=== PATIENT | male | born 1945 | race American Indian/Alaskan Native ===

== ENCOUNTER 2016-09-18 11:29 | Inpatient (IN) | payer MEDICARE ==
[2016-09-18] MEDS ORDERED: KEPPRA 1,000 MG/NS 0.75% 100ML 1,000 MG/100 ML BAG IV ONE ×2 (11:34→12:30)
[2016-09-18] MEDS ORDERED: ATIVAN ONE (11:34)
[2016-09-18] MEDS ORDERED: KEPPRA 1,000 MG in D5W 100 ML IV ONE (11:48)
[2016-09-18] MEDS ORDERED: ATIVAN IV ONE (11:48)
--- NOTE | 2016-09-18 12:03 | Emergency Department Report ---
ED General Adult HPI - General Chief complaint: Seizure Stated complaint: SEIZURE Time Seen by Provider: 09/18/16 11:47 Source: family, EMS, RN notes reviewed, old records reviewed Mode of arrival: Stretcher Limitations: Altered Mental Status - History of Present Illness Initial comments: This is a 71-year-old male. I have evaluated him in the past. Has a past medical history of multiple strokes, left hemianopia defect, mild left hemiparesis. Also has a history of seizure disorder, is supposed to be taking Keppra, 750 twice daily. Also has a history of renal insufficiency, not currently on dialysis therapy. Patient is brought to the hospital by EMS. Patient has been having seizures. There is no trauma. Seizure started today. They're constant. EMS reported that seizures were generalized tonic-clonic, and improved with 2 mg of Ativan. Upon arrival to the ER, patient was actively seizing. He was given 2 mg of Ativan, and 1 g of Keppra, which terminated his seizure. Patient is on home hospice, he is a DO NOT RESUSCITATE, but his daughter, Mrs. Joi Plascencia, , gives permission for intubation if necessary. Currently, the patient is postictal, breathing spontaneously, unable to offer additional history. The patient's daughter reports the patient is typically alert and oriented and conversant, and was normal yesterday, and this morning prior to the episode of seizure. -: Sudden Improves with: medication Worsens with: none Associated Symptoms: confusion - Related Data Home Medications Medication Instructions Recorded Confirmed Last Taken Clopidogrel 75 mg PO DAILY 04/30/16 08/22/16 06/15/16 Latanoprost 0.005% 1 drop OS DAILY 04/30/16 08/22/16 06/15/16 Metoprolol Tartrate 25 mg PO BID 04/30/16 08/22/16 06/15/16 hydrALAZINE 25 mg PO TID 04/30/16 08/22/16 06/15/16 Sodium Bicarbonate 650 mg PO DAILY 05/27/16 08/22/16 06/15/16 Aspirin EC [Aspirin Enteric Coated 81 mg PO QDAY 06/16/16 08/22/16 06/15/16 TAB] levETIRAcetam [Keppra TAB] 750 mg PO BID 06/16/16 08/22/1616 AtorvaSTATin [Lipitor] 40 mg PO QHS 08/22/16 08/22/16 Unknown Suplena 480 ml FEEDTUBE TID 08/22/16 08/22/16 Unknown Previous Rx's Medication Instructions Recorded Last Taken Type Famotidine [Pepcid] 20 mg PO BID #60 tablet 05/28/16 06/15/16 Rx Levofloxacin [Levaquin] 250 mg PO QDAY #5 tablet 08/26/16 Unknown Rx Allergies Allergy/AdvReac Type Severity Reaction Status Date / Time No Known Allergies Allergy Unverified 04/30/16 21:38 ED Review of Systems ROS: Stated complaint: SEIZURE Other details as noted in HPI Comment: Unobtainable due to pts medical conditions ED Past Medical Hx - Past Medical History Previous Medical History?: Yes Hx Hypertension: Yes Hx CVA: Yes (x2, TIA) Hx Heart Attack/AMI: Yes (CAD) Hx Diabetes: Yes Hx Renal Disease: Yes (Renal Failure (Not on dialysis yet)) Hx of Cancer: Yes (Stage 4 prostate) Hx Seizures: Yes Hx Dementia: Yes Hx HIV: No Additional medical history: Glaucoma, - Surgical History Past Surgical History?: Yes Additional Surgical History: Right knee, AV Fistila Right arm. - Social History Smoking Status: Never Smoker Substance Use Type: None - Medications Home Medications: Home Medications Medication Instructions Recorded Confirmed Last Taken Type Clopidogrel 75 mg PO DAILY 04/30/16 08/22/16 06/15/16 History Latanoprost 0.005% 1 drop OS DAILY 04/30/16 08/22/16 06/15/16 History Metoprolol Tartrate 25 mg PO BID 04/30/16 08/22/16 06/15/16 History hydrALAZINE 25 mg PO TID 04/30/16 08/22/16 06/15/16 History Sodium Bicarbonate 650 mg PO DAILY 05/27/16 08/22/16 06/15/16 History Famotidine [Pepcid] 20 mg PO BID #60 tablet 05/28/16 08/22/16 06/15/16 Rx Aspirin EC [Aspirin Enteric Coated 81 mg PO QDAY 06/16/16 08/22/16 06/15/16 History TAB] levETIRAcetam [Keppra TAB] 750 mg PO BID 06/16/16 08/22/1606/15/16 History AtorvaSTATin [Lipitor] 40 mg PO QHS 08/22/16 08/22/16 Unknown History Suplena 480 ml FEEDTUBE TID 08/22/16 08/22/16 Unknown History Levofloxacin [Levaquin] 250 mg PO QDAY #5 tablet 08/26/16 Unknown Rx ED Physical Exam - General Limitations: Altered Mental Status General appearance: lethargic - Head Head exam: Present: atraumatic, normocephalic - Eye Eye exam: Present: normal appearance. Absent: nystagmus - ENT ENT exam: Present: mucous membranes dry - Neck Neck exam: Present: normal inspection, full ROM. Absent: tenderness, meningismus - Respiratory Respiratory exam: Present: rhonchi. Absent: respiratory distress - Cardiovascular Cardiovascular Exam: Present: normal rhythm, tachycardia, normal heart sounds. Absent: systolic murmur, diastolic murmur, rubs, gallop - GI/Abdominal GI/Abdominal exam: Present: soft, normal bowel sounds, other (feeding tube is noted in the left mid flank. No redness, pus or streaking). Absent: distended , tenderness, guarding, rebound, rigid, pulsatile mass - Rectal Rectal exam: Present: normal inspection - Extremities Exam Extremities exam: Present: normal inspection, normal capillary refill. Absent: calf tenderness - Back Exam Back exam: Present: normal inspection. Absent: tenderness, CVA tenderness (R), CVA tenderness (L), muscle spasm, paraspinal tenderness - Neurological Exam Neurological exam: Present: altered - Psychiatric Psychiatric exam: Present: other (patient altered, currently postictal) - Skin Skin exam: Present: warm, dry, intact, normal color. Absent: rash ED Course Vital Signs 09/18/16 09/18/16 09/18/16 11:36 11:40 11:45 Temperature 99.9 F H Pulse Rate 127 H 113 H Respiratory 15 24 Rate Blood Pressure O2 Sat by Pulse 96 99 100 Oximetry 09/18/16 09/18/16 09/18/16 11:50 12:44 12:50 Temperature Pulse Rate 103 H Respiratory 31 H Rate Blood Pressure 133/70 133/70 133/70 O2 Sat by Pulse 100 100 100 Oximetry 09/18/16 09/18/16 09/18/16 13:00 13:10 13:20 Temperature Pulse Rate Respiratory Rate Blood Pressure 133/70 133/70 133/70 O2 Sat by Pulse 100 100 100 Oximetry 09/18/16 09/18/16 09/18/16 13:30 13:40 13:50 Temperature Pulse Rate Respiratory Rate Blood Pressure 133/70 133/70 133/70 O2 Sat by Pulse 100 100 100 Oximetry 09/18/16 09/18/16 14:00 14:10 Temperature Pulse Rate Respiratory Rate Blood Pressure 133/70 133/70 O2 Sat by Pulse 100 100 Oximetry - Reevaluation(s) Reevaluation #1: 09/18/16 12:01 Differential diagnosis: Breakthrough seizure, pneumonia, medication noncompliance, electrolyte derangement, myositis, urinary tract infection Assessment and plan: 71-year-old male with known history of breakthrough seizures. He is currently postictal. Review of old charts demonstrates the patient was recently admitted for seizures, possible urinary tract infection, and discharged on Levaquin. Levaquin and of itself may decrease the seizure threshold. We will check basic laboratory studies, x-ray, CAT scan of the head , and continue to monitor. The patient regained his normal mental status, it may be reasonable to discharge. However, if he remains postictal for a prolonged period of time, he may require admission. Patient is currently following with [facility]; [place]; [phone] Reevaluation #2: 09/18/16 14:25 patient has had a prolonged postictal state, without christianity of normal mental status. Most likely combination of postictal state with IV sedating medications. Urinalysis suggests urinary tract infection. Given the prolonged altered mental status, patient to be admitted. Is not requiring intubation at this time. Dr. Escoto accepts the patient to his service. ED Medical Decision Making - Lab Data Result diagrams: 09/18/16 12:05 09/18/16 12:05 Vital Signs 09/18/16 11:45 Temperature 99.9 F H Pulse Rate 113 H Respiratory 24 Rate O2 Sat by Pulse 100 Oximetry - Radiology Data Radiology results: report reviewed, image reviewed CT scan of the brain negative for acute disease, chronic findings noted. X-ray the chest negative for acute disease. Critical Care Time: Yes Critical care time in (mins) excluding proc time.: 35 Critical care attestation.: If time is entered above; I have spent that time in minutes in the direct care of this critically ill patient, excluding procedure time. Critical Care Time: Critical care time includes multiple bedside evaluations, interpretation of laboratory studies, radiology studies, time spent managing a patient with active seizures, requiring IV benzodiazepines, and close airway management. This does not include procedure time. ED Disposition Clinical Impression: Altered mental status Qualifiers: Altered mental status type: unspecified Qualified Code(s): R41.82 - Altered mental status, unspecified Urinary tract infection Qualifiers: Urinary tract infection type: acute cystitis Hematuria presence: without hematuria Qualified Code(s): N30.00 - Acute cystitis without hematuria Chronic kidney disease Qualifiers: Chronic kidney disease stage: unspecified stage Qualified Code(s): N18.9 - Chronic kidney disease, unspecified Disposition: OP ADMITTED IP TO THIS HOSP Is pt being admited?: Yes Does the pt Need Aspirin: No Condition: Fair
[2016-09-18 12:14] LABS: Bilirubin,Urine NEG (Negative); Blood,Urine NEG (Negative); Ketones,Urine NEG (Negative); Leukocyte Esterase,Urine LG (Negative); Mucus,Urine FEW /HPF; Nitrite,Urine NEG (Negative); Urobilinogen,Urine < 2.0 mg/dL (<2.0)
[2016-09-18 12:15] LABS: Protein,Urine >500 mg/dL (Negative)
--- NOTE | 2016-09-18 12:21 | XRay Report ---
AP CHEST: HISTORY: Shortness of breath, pneumonia AP view of the chest demonstrates a normal mediastinal and cardiac contour with clear lungs and normal bony and soft tissue structures. The aorta is tach which is unchanged. IMPRESSION: Unremarkable AP chest. No significant change since 06/16/16.
--- NOTE | 2016-09-18 12:32 | Cat Scan Report ---
CT HEAD WITHOUT CONTRAST: HISTORY: Seizures. Volume loss and chronic white matter changes are noted. Chronic focal infarcts in the right basal ganglia, medial left thalamus, left karel and left cerebellar hemisphere are again noted. Large chronic infarct in the right CIRCULAR CLERK distribution is again noted. There is no evidence for hemorrhage, mass or extra-axial fluid collection. Ventricular size is stable and within normal limits. The mastoid air cells and visualized portions of the sinuses are normal. IMPRESSION: Chronic findings as outlined above which are unchanged since 06/16/16.
[2016-09-18 12:38] LABS: BUN/Creatinine Ratio 13.33; Calcium 8.6 mg/dL (8.4-10.2); Chloride 103.7 mmol/L (98-107); Magnesium 2.2 mg/dL (1.7-2.3); Potassium 4.3 mmol/L (3.6-5.0)
[2016-09-18] MEDS ORDERED: ROCEPHIN/NS 1 GM/50 ML 1 GM/50 ML BAG IV ONE (12:45)
[2016-09-18 12:53] LABS: Hematocrit 35.9 % (35.5-45.6); Hemoglobin 11.4 gm/dl (11.8-15.2); Mean Corpuscular HGB Conc 32 % (32-34); Mean Corpuscular Hemoglobin 29 pg (28-32); Mean Corpuscular Volume 92 fl (84-94); Platelet Count 206 K/mm3 (140-440); Red Blood Count 3.91 M/mm3 (3.65-5.03); Red Cell Distribution Width 15.3 % (13.2-15.2); White Blood Count 7.2 K/mm3 (4.5-11.0)
--- NOTE | 2016-09-18 14:14 | History and Physical Report ---
History of Present Illness Chief complaint: seizure History of present illness: 71 YO Male with Prostate Cancer Stage 4(On hospice care but patient family revoked in ED), CVA with LHP, Seizure Disorder, CAD, HTN, Dementia, Debility, DM , ESRD not on Dialysis presents to ED for evaluation. Pt transported to ED as per EMS and had generalized tonic clonic seizures in transit. Pt treated with ativan with resolution of seizure activity. Patient is on home hospice, he is a DO NOT RESUSCITATE, but his daughter, Mrs. Joi Plascencia, , revoked previous DNR and wants pt to be a full code. Pt seen and evaluated in ED, Pt is able to protect his airway, and has positive gag reflex. Pt is stuporous on exam and in unable to provide history, but history is taken from chart, and ED staff. Past History Past Medical History: CAD, cancer, diabetes, ESRD, hypertension, seizures, stroke Past Surgical History: total knee replacement, Other (RUE AVF) Social history: . denies: smoking, alcohol abuse, prescription drug abuse Family history: diabetes, hypertension Medications and Allergies Allergies Allergy/AdvReac Type Severity Reaction Status Date / Time No Known Allergies Allergy Unverified 04/30/16 21:38 Home Medications Medication Instructions Recorded Confirmed Last Taken Type Clopidogrel 75 mg PO DAILY 04/30/16 08/22/16 06/15/16 History Latanoprost 0.005% 1 drop OS DAILY 04/30/16 08/22/16 06/15/16 History Metoprolol Tartrate 25 mg PO BID 04/30/16 08/22/16 06/15/16 History hydrALAZINE 25 mg PO TID 04/30/16 08/22/16 06/15/16 History Sodium Bicarbonate 650 mg PO DAILY 05/27/16 08/22/16 06/15/16 History Famotidine [Pepcid] 20 mg PO BID #60 tablet 05/28/16 08/22/16 06/15/16 Rx Aspirin EC [Aspirin Enteric Coated 81 mg PO QDAY 06/16/16 08/22/16 06/15/16 History TAB] levETIRAcetam [Keppra TAB] 750 mg PO BID 06/16/16 08/22/16 06/15/16 History AtorvaSTATin [Lipitor] 40 mg PO QHS 08/22/16 08/22/16 Unknown History Suplena 480 ml FEEDTUBE TID 08/22/16 08/22/16 Unknown History Levofloxacin [Levaquin] 250 mg PO QDAY #5 tablet 08/26/16 Unknown Rx Review of Systems ROS unobtainable: due to mental status Exam - Constitutional Vitals: Temp Pulse Resp BP Pulse Ox 99.9 F H 113 H 24 100 09/18/16 11:45 09/18/16 11:45 09/18/16 11:45 09/18/16 11:45 General appearance: Present: mild distress - EENT Eyes: Present: PERRL - Neck Neck: Present: supple - Respiratory Respiratory: bilateral: diminished - Cardiovascular Rhythm: regular Heart Sounds: Present: S1 & S2 - Extremities Extremities: no ischemia Extremity abnormal: edema Peripheral Pulses: within normal limits - Abdominal General gastrointestinal: Present: soft, non-tender, non-distended. Absent: hepatomegaly, splenomegaly Male genitourinary: Present: normal - Integumentary Integumentary: Present: clear, dry, decreased turgor - Musculoskeletal Musculoskeletal: left sided weakness - Psychiatric Psychiatric: no intact judgment & insight, no memory intact - Neurologic Neurologic: no CNII-XII intact, focal deficits, no moves all extremities, no gait normal Results - Labs CBC & Chem 7: 09/18/16 12:05 09/18/16 12:05 Labs: Abnormal lab results 09/18/16 09/18/16 09/18/16 Range/Units 11:54 12:05 12:05 Hgb 11.4 L (11.8-15.2) gm/dl RDW 15.3 H (13.2-15.2) % Carbon Dioxide 16 L (22-30) mmol/L BUN 40 H (9-20) mg/dL Creatinine 3.0 H (0.8-1.5) mg/dL Glucose 165 H (75-100) mg/dL Urine WBC (Auto) 149.0 H (0.0-6.0) /HPF Assessment and Plan - Patient Problems (1) Metastatic malignant neoplasm to prostate Current Visit: Yes Status: Acute Plan to address problem: Pain control, supportive care. Pt not a candidate for chemotherapy at this time. Pt family revoked hospice care. Poor prognosis. (2) Encephalopathy Current Visit: Yes Status: Acute Plan to address problem: supportive care, bed alarm, fall precautions, treat UTI (3) Seizure disorder Current Visit: Yes Status: Acute Plan to address problem: Keppra level, resume keppra therapy, ativan prn (4) UTI (urinary tract infection) Current Visit: Yes Status: Acute Qualifiers: Urinary tract infection type: U Hematuria presence: H Indwelling urinary catheter type: I Encounter type: E Plan to address problem: IV abx, ivf, supportive care, monitor uop q shift (5) ARF (acute renal failure) Current Visit: Yes Status: Acute Qualifiers: Acute renal failure type: A Plan to address problem: ESRD not on hemodialysis. Treat with supportive care, (6) Metabolic acidosis Current Visit: Yes Status: Acute Plan to address problem: IVF, treat uti, supportive care, (7) DVT prophylaxis Current Visit: Yes Status: Acute
--- NOTE | 2016-09-18 14:47 | Admit Criteria Form ---
Admission Criteria Documentation: MENTAL STATUS CHANGE Clinical Indications for Inpatient Care (Place 'X' for any and all applicable criteria): Ongoing inpatient care may be needed for ANY ONE of the following(1)(2)(3)(5)(6) : [X ]I. Suspected serious etiology (eg, medical disorder, ORACLE FUSION DEVELOPER event) of mental status change [ ]II. Danger to self or others not manageable at lower level of care [ ]III. Grave disability (eg, inability to perform self care necessary at lower level of care) [ ]IV. Agitation or inappropriate behavior interfering with care for primary condition (eg, attempting to discontinue lines or drains prematurely, unable to cooperate with respiratory care) [ ]V. Delirium [A] [D][E] as described by ANY ONE of the following(26): [ ]a) Delirium due to alcohol or sedative [F] withdrawal [ ]b) Delirium of uncertain etiology that has not responded to appropriate empiric treatment [ ]c) Delirium that prevents performance of a life-sustaining function (eg, feeding or hydrating oneself) [X ]. General contraindications and/or Inappropriate clinical situations for Observational Care in patients with Mental Status Change, when ANY ONE of the following is required: [X ]a) Prediction of prolongation of LOS based on ANY ONE of the following may be considered as a contraindication for observational care 2, 3, 4, 5, 6, 7, 8, 9, 10, 11 [X ]i) Age > 65 yrs. [ ]ii) Patient arriving by ambulance [ ]iii) Patient with high acuity [ ]iv) Patient requiring vital sign monitoring [ ]v) Patient on IV medication [ ]b) Systolic blood pressures 180mmHg 3,12 [ ]c) Patient with altered mental status including delirium and other alteration of consciousness, (3) [ ]d) Patient whose discharge disposition will be to a longterm home or rehabilitation home should not be managed in Emergency Department Observation Unit. CMS rule requires 3 days hospital stay before such placement.3,13 [ ]e) Patient with failure to thrive due to broad array of etiologies 3,16,17 [ ]f) Inability to ambulate 3,14 Extended stay beyond goal length of stay for the primary condition may be needed until ALL of the following are present(3)(5): [ ]a) Underlying medical etiology of mental status change is absent, or has been established and adequately treated [ ]b) Danger to self or others is absent or manageable at lower level of care. [ ]c) Behavior crisis management, including physical or chemical restraints, is not required or available at lower level of car [ ]d) Substance or alcohol withdrawal is absent or manageable at lower level of care. [ ]e) Behavioral symptoms (eg, agitation, somnolence, inappropriate behavior) are absent, or are manageable at lower level of care. The original [facility] [employer] content created by [facility] has been revised. The portions of the content which have been revised are identified through the use of italic text or in bold, and [facility] has neither reviewed nor approved the modified material. All other unmodified content is copyright [facility]. Please see references footnoted in the original [facility] edition 2016 Admission Criteria Met: Yes
[2016-09-18] MEDS ORDERED: TYLENOL PO PRN (16:46)
[2016-09-18] MEDS ORDERED: NACL 0.45% 1000 ML 1,000 ML IV SCH (18:00)
[2016-09-18] MEDS ORDERED: NON-FORMULARY (Hydralazine 25 MG) PO SCH (20:00)
[2016-09-18] MEDS ORDERED: [UNRECOGNIZED DRUG - OTHER] FEEDTUBE SCH (20:00)
[2016-09-18] MEDS ORDERED: NON-FORMULARY (Metoprolol Tartrate 25 MG) PO SCH (22:00)
[2016-09-18] MEDS ORDERED: PEPCID PO SCH (22:00)
[2016-09-18] MEDS: PEPCID PO SCH (23:19)
[2016-09-18] MEDS: KEPPRA PO SCH (23:19)
[2016-09-18] MEDS: APRESOLINE PO SCH (23:19)
[2016-09-18] MEDS: LOPRESSOR PO SCH (23:20)
[2016-09-18] MEDS: XALATAN 0.005% OU SCH (23:31)
[2016-09-19] MEDS: APRESOLINE PO SCH ×3 (07:24→22:10)
--- NOTE | 2016-09-19 09:30 | Progress Note ---
Hospitalist Physical - Constitutional Vitals: Temp Pulse Resp BP Pulse Ox 97.8 F 75 18 152/72 94 09/19/16 07:35 09/19/16 07:35 09/19/16 07:35 09/19/16 07:35 09/19/16 07:35 General appearance: Present: mild distress Results - Labs CBC & Chem 7: 09/18/16 12:05 09/18/16 12:05 Labs: Laboratory Last Values WBC 7.2 K/mm3 (4.5-11.0) 09/18/16 12:05 RBC 3.91 M/mm3 (3.65-5.03) 09/18/16 12:05 Hgb 11.4 gm/dl (11.8-15.2) L 09/18/16 12:05 Hct 35.9 % (35.5-45.6) 09/18/16 12:05 MCV 92 fl (84-94) 09/18/16 12:05 MCH 29 pg (28-32) 09/18/16 12:05 MCHC 32 % (32-34) 09/18/16 12:05 RDW 15.3 % (13.2-15.2) H 09/18/16 12:05 Plt Count 206 K/mm3 (140-440) 09/18/16 12:05 Sodium 141 mmol/L (137-145) 09/18/16 12:05 Potassium 4.3 mmol/L (3.6-5.0) 09/18/16 12:05 Chloride 103.7 mmol/L (98-107) 09/18/16 12:05 Carbon Dioxide 16 mmol/L (22-30) L 09/18/16 12:05 Anion Gap 26 mmol/L 09/18/16 12:05 BUN 40 mg/dL (9-20) H 09/18/16 12:05 Creatinine 3.0 mg/dL (0.8-1.5) H 09/18/16 12:05 Estimated GFR 25 ml/min 09/18/16 12:05 BUN/Creatinine Ratio 13.33 % 09/18/16 12:05 Glucose 165 mg/dL (75-100) H 09/18/16 12:05 Calcium 8.6 mg/dL (8.4-10.2) 09/18/16 12:05 Magnesium 2.2 mg/dL (1.7-2.3) 09/18/16 12:05 Total Creatine Kinase 67 units/L (55-170) 09/18/16 12:05 Urine Color Yellow (Yellow) 09/18/16 11:54 Urine Turbidity Cloudy (Clear) 09/18/16 11:54 Urine pH 6.0 (5.0-7.0) 09/18/16 11:54 Ur Specific Porter 1.016 (1.003-1.030) 09/18/16 11:54 Urine Protein >500 mg/dL (Negative) 09/18/16 11:54 Urine Glucose (UA) Neg mg/dL (Negative) 09/18/16 11:54 Urine Ketones Neg mg/dL (Negative) 09/18/16 11:54 Urine Blood Neg (Negative) 09/18/16 11:54 Urine Nitrite Neg (Negative) 09/18/16 11:54 Urine Bilirubin Neg (Negative) 09/18/16 11:54 Urine Urobilinogen < 2.0 mg/dL (<2.0) 09/18/16 11:54 Ur Leukocyte Esterase Lg (Negative) 09/18/16 11:54 Urine WBC (Auto) 149.0 /HPF (0.0-6.0) H 09/18/16 11:54 Urine RBC (Auto) 6.0 /HPF (0.0-6.0) 09/18/16 11:54 Urine WBC Clumps 2+ /HPF 09/18/16 11:54 Urine Mucus Few /HPF 09/18/16 11:54
[2016-09-19] MEDS ORDERED: SODIUM BICARBONATE FEEDTUBE PRN ×2 (09:50→11:37)
[2016-09-19] MEDS ORDERED: SIMPLE SYRUP FEEDTUBE PRN ×4 (09:50→11:37)
[2016-09-19] MEDS ORDERED: PANCREAZE DR 10,500 UNIT FEEDTUBE PRN ×2 (09:50→11:37)
[2016-09-19] MEDS ORDERED: NON-FORMULARY (Clopidogrel 75 MG) PO SCH (10:00)
[2016-09-19] MEDS ORDERED: NON-FORMULARY (Latanoprost 0.005% 1 DROP) OS SCH (10:00)
[2016-09-19] MEDS: HALFPRIN EC PO SCH (10:59)
[2016-09-19] MEDS: PEPCID PO SCH ×2 (11:00→22:10)
[2016-09-19] MEDS: PLAVIX PO SCH (11:00)
[2016-09-19] MEDS: SODIUM BICARBONATE PO SCH (11:00)
[2016-09-19] MEDS: LOPRESSOR PO SCH ×2 (11:01→22:10)
[2016-09-19] MEDS: KEPPRA PO SCH ×2 (11:01→22:11)
[2016-09-19] MEDS: ROCEPHIN/NS 1 GM/50 ML 1 GM/50 ML BAG IV SCH (11:02)
[2016-09-19 11:27] LABS: Calcium 8.7 mg/dL (8.4-10.2); Chloride 105.1 mmol/L (98-107); Potassium 4.3 mmol/L (3.6-5.0)
[2016-09-19] MEDS: XALATAN 0.005% OU SCH (18:19)
[2016-09-20 05:38] LABS: Calcium 8.1 mg/dL (8.4-10.2); Chloride 104.6 mmol/L (98-107); Potassium 4.5 mmol/L (3.6-5.0)
[2016-09-20] MEDS: APRESOLINE PO SCH (05:48)
--- NOTE | 2016-09-20 10:23 | Discharge Summary ---
Providers - Providers Date of Admission: 09/18/16 16:06 Date of discharge: 09/20/16 Attending physician: MALCOLM AREVALO Primary care physician: JUAN CARLOS REN MD Hospitalization Condition: Fair Disposition: DC TO HOSPICE (HOME) - Discharge Diagnoses (1) Encephalopathy Status: Acute (2) Metastatic malignant neoplasm to prostate Status: Acute (3) Seizure disorder Status: Acute (4) UTI (urinary tract infection) Status: Acute Qualifiers: Urinary tract infection type: acute cystitis Hematuria presence: without hematuria Indwelling urinary catheter type: I Encounter type: E Qualified Code(s): N30.00 - Acute cystitis without hematuria Exam - Constitutional Vitals: Temp Pulse Resp BP Pulse Ox 98.2 F 80 20 170/84 96 09/20/16 07:25 09/20/16 07:25 09/20/16 07:25 09/20/16 07:25 09/20/16 08:00 Plan Activity: advance as tolerated Diet: other (tube feeding) Additional Instructions: 1.Follow with home hospice Follow up with: PRIMARY MD GELA [Primary Care Provider] - 3-5 Days Prescriptions: Hydralazine HCl [Apresoline TAB] 50 mg PO Q8HR #90 tab levETIRAcetam [Keppra TAB] 1,000 mg PO BID #60 tab
[2016-09-20] MEDS: ROCEPHIN/NS 1 GM/50 ML 1 GM/50 ML BAG IV SCH (10:31)
[2016-09-20] MEDS: LOPRESSOR PO SCH (10:32)
[2016-09-20] MEDS: SODIUM BICARBONATE PO SCH (10:32)
[2016-09-20] MEDS: HALFPRIN EC PO SCH (10:32)
[2016-09-20] MEDS: KEPPRA PO SCH (10:33)
[2016-09-20] MEDS: PEPCID PO SCH (10:33)
[2016-09-20] MEDS: PLAVIX PO SCH (10:33)
[2016-09-20 13:02] VITALS: BP 173/75
== END 2016-09-20 13:00 | disposition home or self-care (01) | DRG 100 ==
LOC: ED 11:29 → 3A 16:06
PROVIDERS: ADMIT Internal Medicine; ATTEND Internal Medicine
DX: G40.409 Other generalized epilepsy and epileptic syndromes, not intractable, without status epilepticus (principal); G93.40 Encephalopathy, unspecified; N18.6 End stage renal disease; E87.2 Acidosis; I12.0 Hypertensive chronic kidney disease with stage 5 chronic kidney disease or end stage renal disease; N39.0 Urinary tract infection, site not specified; N17.9 Acute kidney failure, unspecified; I69.354 Hemiplegia and hemiparesis following cerebral infarction affecting left non-dominant side; C61 Malignant neoplasm of prostate; Z66 Do not resuscitate; I25.10 Atherosclerotic heart disease of native coronary artery without angina pectoris; E11.22 Type 2 diabetes mellitus with diabetic chronic kidney disease; I69.398 Other sequelae of cerebral infarction; Z83.3 Family history of diabetes mellitus; Z82.49 Family history of ischemic heart disease and other diseases of the circulatory system; Z99.2 Dependence on renal dialysis
CPT/HCPCS: 36415; 70450; 71010; 80048; 80177; 81001; 82550; 83735; 85027; 87076; 87086; 87186; 94760; 96365; 96367; 96375; A9270-GY; J0696; J1953; J2060